=== PATIENT | female | born 1985 | race Caucasian/White ===

== ENCOUNTER 2016-12-20 22:00 | Emergency (ER) | payer OTHER ==
[2016-12-20] MEDS ORDERED: SUBO8MIS SL (22:50)
[2016-12-20] MEDS ORDERED: [UNRECOGNIZED DRUG - CODE] PO (22:50)
[2016-12-21 00:44] VITALS: BP 124/73
== END 2016-12-21 00:46 | disposition home or self-care (01) ==
LOC: M ED 22:00
DX: F43.0 Acute stress reaction (principal); Z79.891 Long term (current) use of opiate analgesic; Z79.82 Long term (current) use of aspirin; Z88.8 Allergy status to other drugs, medicaments and biological substances

== ENCOUNTER → 2022-05-20 | Outpatient (REF) | payer OTHER ==
[~2022-05-20] MED LIST: SUBO8MIS SL; [UNRECOGNIZED DRUG - CODE] PO
[2022-05-20 17:08] LABS: BASO % 0.7 % (0.0-1.0); EOS # 0.2 10^3/uL (0.0-0.5); EOS % 3.7 % (0.0-3.0); HEMATOCRIT 32.6 % (36.0-47.0); HEMOGLOBIN 10.8 g/dl (12.0-15.5); LYMPH # 1.6 10^3/uL (1.5-5.0); LYMPH % 27.4 % (24.0-44.0); MEAN CORPUSCULAR HEMOGLOBIN 29.8 pg (27.0-33.0); MEAN CORPUSCULAR HGB CONC 33.1 g/dl (32.0-36.5); MEAN CORPUSCULAR VOLUME 89.8 fl (80.0-96.0); MONO # 0.5 10^3/uL (0.0-0.8); MONO % 8.3 % (2.0-8.0); NEUTROPHILS # 3.5 10^3/uL (1.5-8.5); NEUTROPHILS % 59.7 % (36.0-66.0); PLATELET COUNT, AUTOMATED 330 10^3/uL (150-450); RED BLOOD COUNT 3.63 10^6/uL (4.00-5.40); WHITE BLOOD COUNT 5.9 10^3/uL (4.0-10.0)
[2022-05-20 17:38] LABS: ALKALINE PHOSPHATASE 84 U/L (46-116); ALT/SGPT 9 U/L (7.0-40); AST/SGOT 10 U/L (<34); BILIRUBIN,TOTAL 0.5 MG/DL (0.3-1.2); BLOOD UREA NITROGEN 16 MG/DL (9-23); CARBON DIOXIDE LEVEL 28 MMOL/L (20-31); CHLORIDE LEVEL 105 MMOL/L (98-107); CREATININE FOR GFR 0.61 MG/DL (0.55-1.30); GLOMERULAR FILTRATION RATE > 60.0 (>60); GLUCOSE, FASTING 86 MG/DL (60-100); POTASSIUM SERUM 4.4 MMOL/L (3.5-5.1); SODIUM LEVEL 141 MMOL/L (136-145); THYROID STIMULATING HORMONE 1.929 uIU/ML (0.55-4.78); TOTAL PROTEIN 7.6 G/DL (5.7-8.2)
== END ==
LOC: M LAB REF 16:33
PROVIDERS: ATTEND Family Medicine Addiction Medicine
DX: L65.9 Nonscarring hair loss, unspecified (principal); D64.9 Anemia, unspecified